=== PATIENT | male | born 1965 | race Caucasian/White ===

== ENCOUNTER 2017-01-08 10:39 | Observation (INO) | payer BC ==
[~2017-01-08] VITALS: Ht 182.9 cm; Wt 105.4 kg
[~2017-01-08 10:39] MED LIST: Bactrim,Septra DS 80 PO; Flagyl PO; OMEPRAZOLE40 M1; PERCOCET 5/31 TABLET PO; PROMETHAZINE HC25 M1 PO; Protonix PO; Theragran PO; Ultram PO
[2017-01-08 12:45] LABS: BASOPHIL COUNT 0.1 K/uL (0-0.1); EOSINOPHIL (%) 1.3 % (0-5); EOSINOPHIL COUNT 0.1 K/uL (0-0.3); HEMATOCRIT 41.1 % (38.0-50.0); IMMATURE GRANULOCYTE (%) 0.4 % (0.0-0.7); INSTRUMENT ABS NEUTROPHIL CT 5.8 K/uL; LYMPHOCYTE COUNT 1.2 K/uL (1.0-2.8); MCH 30.1 PG (29.0-34.0); MCHC 34.5 G/DL (30.0-36.0); MCV 87.1 FL (86-99); MEAN PLAT.VOLUME 10.1 uM^3 (9.0-12.4); MONOCYTE (%) 7.7 % (3-12); MONOCYTE COUNT 0.6 K/uL (0-0.8); NEUTROPHIL (%) 74.1 % (45-76); NEUTROPHIL COUNT 5.8 K/uL (1.8-6.4); PLATELET COUNT 201 K/uL (156-360); RBC DIS.WIDTH-SD 38.5 % (39-53); RED BLOOD COUNT 4.72 M/uL (4.00-5.50); WHITE BLOOD COUNT 7.9 K/uL (4.1-10.2)
[2017-01-08 12:56] LABS: CHLORIDE 106 mEq/L (99-109); POTASSIUM 4.1 mEq/L (3.7-5.4); SODIUM 139 mEq/L (136-147)
[2017-01-08 12:57] LABS: GLUCOSE 94 mg/dL (70-99)
[2017-01-08 12:59] LABS: ANION GAP 11 MEQ/L (2-14)
[2017-01-08 13:01] LABS: GFR ESTIMATE (CALCULATED) > 59 mL/min/
[2017-01-08 13:02] LABS: UREA NITROGEN (BUN) 14 mg/dL (9-23)
[2017-01-08] MEDS ORDERED: OMEPRAZOLE40 M1 PO (14:09)
[2017-01-08 14:53] LABS: TROP-I INTERPRETATION NEGATIVE; TROPONIN-I < 0.01 ng/mL (0.0-0.30)
[2017-01-08 15:33] LABS: HDL CHOLESTEROL 47 MG/DL (Desirable>=40); LDL CHOLESTEROL 146 mg/dL (Desirable<100); NON-HDL CHOLESTEROL 160 mg/dL (Desirable<160); TOTAL CHOLESTEROL 207 mg/dL (Desirable<200); TRIGLYCERIDES 72 MG/DL (Normal: <150)
[2017-01-08 19:55] VITALS: BP 158/94
[2017-01-08 20:56] LABS: TROP-I INTERPRETATION NEGATIVE; TROPONIN-I < 0.01 ng/mL (0.0-0.30)
[2017-01-08 23:50] VITALS: BP 146/98
[2017-01-09 02:39] LABS: TROP-I INTERPRETATION NEGATIVE; TROPONIN-I < 0.01 ng/mL (0.0-0.30)
[2017-01-09 03:45] VITALS: BP 163/111
[2017-01-09 07:51] VITALS: BP 128/96
[2017-01-09 11:57] VITALS: BP 136/93
[2017-01-09 15:30] VITALS: BP 142/91
[2017-01-10 15:09] LABS: Estimated Average Glucose 111 mg/dL (70-123); HEMOGLOBIN A1c (GLYCOHEMOGLOB) 5.5 % HGB (Below 5.7)
== END 2017-01-09 15:53 | disposition home or self-care (01) ==
LOC: EME 10:39 → 5SOUTH 13:46 → EDOF 13:46 → 5SOUTH 13:46 → ENRESERV 13:50 → 5SOUTH 17:28 → ENRESERV 01-09 13:36 → CANRESERV 01-09 13:36 → 5SOUTH 01-09 15:53
PROVIDERS: Emergency Medicine; Internal Medicine
DX: H53.2 Diplopia (principal); H49.01 Third [oculomotor] nerve palsy, right eye; H02.401 Unspecified ptosis of right eyelid; G93.0 Cerebral cysts; I10 Essential (primary) hypertension; E78.5 Hyperlipidemia, unspecified; K21.9 Gastro-esophageal reflux disease without esophagitis; Z88.5 Allergy status to narcotic agent; Z83.3 Family history of diabetes mellitus
CPT/HCPCS: 70450; 70496; 70544; 70553; 71010; 80048; 80061; 83036; 84238 90; 84484; 85025; 85651; 93005; 93880; 99281; 99285; G0378; J1650